=== PATIENT | female | born 1990 ===

== ENCOUNTER 2016-05-15 09:52 | Emergency (ER) | payer OTHER ==
[~2016-05-15] VITALS: Ht 182.9 cm; Wt 59.2 kg
[2016-05-15 09:55] VITALS: TEMP 37; Ht 182.9 cm; Wt 59.2 kg
[2016-05-15] MEDS ORDERED: KETOROLAC TROMETHAMINE 30 MG/ML VIAL IV STA (10:06)
[2016-05-15] MEDS ORDERED: SODIUM CHLORIDE 0.9% 1000ML 1,000 ML IV STA (10:06)
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
[2016-05-15] MEDS ORDERED: MULTTAB58 PO (10:14)
[2016-05-15] MEDS ORDERED: RANITIDINE HCL 150 MG TAB PO ONE (10:15)
[2016-05-15] MEDS ORDERED: ONDANSETRON INJ 2 MG/ML 2 ML VIAL IV ONE (10:15)
[2016-05-15 10:39] LABS: BASO % 0.2 %; BASO ABS # 0.01 K/uL (0-0.2); COMPLETE YES; IG% 0.2 %; LYMPH % 13.6 %; LYMPH ABS # 0.66 K/uL (1.2-3.4); MEAN CELL VOLUME 88.1 fL (80-100); MEAN PLATELET VOLUME 9.7 fL (7.4-10.4); MONO % 3.9 %; NEUT % 81.1 %; PLATELET COUNT 204 K/uL (130-400); RED BLOOD COUNT 4.54 M/uL (4.2-5.4); WHITE BLOOD COUNT 4.85 K/uL (4.8-10.8)
[2016-05-15 10:55] LABS: CALCIUM 9.1 mg/dl (8.5-10.1); CREATININE 0.81 mg/dl (0.60-1.20); POTASSIUM 4.1 mmol/L (3.5-5.1)
[2016-05-15 10:58] LABS: ALB/GLOB RATIO 1.1 (0.9-2)
[2016-05-15] MEDS ORDERED: ONDA4TAB10 SL (11:50)
[2016-05-15 12:33] VITALS: BP 106/73; PULSE 88; O2SAT 100
== END 2016-05-15 12:50 | disposition home or self-care (01) ==
LOC: C.EDB 09:55
DX: K29.70 Gastritis, unspecified, without bleeding (principal); E86.0 Dehydration; J45.909 Unspecified asthma, uncomplicated